=== PATIENT | male | born 1970 | race American Indian/Alaskan Native ===

== ENCOUNTER 2020-05-08 00:54 | Emergency (ER) | payer BC ==
--- NOTE | 2020-05-08 01:01 | Emergency Department Report ---
ED Chest Pain HPI - General Chief Complaint: Chest Pain Stated Complaint: CHEST PAIN ISAIAS PUI?: No Time Seen by Provider: 05/08/20 00:58 Source: patient Mode of arrival: Stretcher Limitations: No Limitations - History of Present Illness Initial Comments: Patient is a 50-year-old male that presents emergency room with complaints of chest pain or shortness of breath x3 days. Patient also complains of dyspnea on exertion. Patient states his symptoms started 3 days ago. Patient states his symptoms are worsening. Patient states he has an LVAD that was placed at [facility]. Patient denies anxiety. Patient denies diaphoresis. Patient states his chest pain is a 7 out of 10. Patient states his chest pain is worse with exertion and better with rest. Patient states that shortness of breath is better with rest and worse with exertion. Patient denies fever and chills. Patient denies back pain. Patient denies headache. Patient denies recent travel. Patient denies recent international travel. Patient denies exposure to the novel coronavirus. Patient denies sick contacts. Patient denies fever and chills. Patient denies cough. Patient denies diarrhea. Patient denies coming in contact with anybody with symptoms of the novel coronavirus. MD Complaint: chest pain -: Sudden Onset: during rest Pain Location: substernal, left chest Severity: severe Severity scale (0 -10): 7 Quality: sharp Consistency: constant Improves With: rest Worsens With: exertion re: dyspnea. denies: nausea, vomting, diaphoresis, sense of impending doom Other Symptoms: denies: cough, fever, syncope, rash, acid taste in mouth, leg swelling, palpitations, burping Treatments Prior to Arrival: aspirin Aspirin use within the Past 7 Days: (1) Yes - Related Data On Oral Contraceptives: No Allergies Allergy/AdvReac Type Severity Reaction Status Date / Time No Known Allergies Allergy Verified 05/08/20 05:26 Heart Score - HEART Score History: Moderately suspicious EKG: Non-specific Age: 45-65 Risk factors: > 3 risk factors or hx of atherosclerotic disease Troponin: 1-3x normal limit HEART Score: 6 ED Review of Systems ROS: Stated complaint: CHEST PAIN ISAIAS Other details as noted in HPI ED Past Medical Hx - Past Medical History Previous Medical History?: Yes Hx Hypertension: Yes Hx Heart Attack/AMI: Yes Hx Congestive Heart Failure: Yes Hx Renal Disease: Yes - Surgical History Past Surgical History?: Yes Additional Surgical History: LVAD - Family History Family history: no significant - Social History Smoking Status: Former Smoker Substance Use Type: None ED Physical Exam - General General appearance: alert, in no apparent distress - Head Head exam: Present: atraumatic, normocephalic - Eye Eye exam: Present: normal appearance - ENT ENT exam: Present: mucous membranes moist - Neck Neck exam: Present: normal inspection - Respiratory Respiratory exam: Present: decreased breath sounds. Absent: respiratory distress - Cardiovascular Cardiovascular Exam: Present: regular rate, normal rhythm. Absent: systolic murmur, diastolic murmur, rubs, gallop - GI/Abdominal GI/Abdominal exam: Present: soft, normal bowel sounds. Absent: distended, tenderness - Rectal Rectal exam: Present: deferred - Extremities Exam Extremities exam: Present: normal inspection - Back Exam Back exam: Present: normal inspection - Neurological Exam Neurological exam: Present: alert, oriented X3 - Psychiatric Psychiatric exam: Present: normal affect, normal mood - Skin Skin exam: Present: warm, dry, intact, normal color. Absent: rash ED Course Vital Signs 05/08/20 05/08/20 01:00 01:01 Temperature 97.5 F L Pulse Rate 87 Respiratory 18 18 Rate O2 Sat by Pulse 100 Oximetry - Reevaluation(s) Reevaluation #1: Patient complaining of severe chest pain. Patient will be given morphine 2 mg. I discussed all results and clinical findings with patient. I discussed plan of care with patient. Patient agrees with plan of care and transfer. Patient is stable for transfer via ground EMS. 05/08/20 03:55 Reevaluation #2: Patient is INR is low. Patient will be placed on a low intensity heparin drip. Patient will also be given a bolus. Patient agrees with plan of care. 05/08/20 05:22 - Consultations Consultation #1: I discussed case with Dr. Correa at [facility]. Dr. Correa has accepted the patient to be transferred and states that if the INR is less than [address] the patient on a heparin drip. 05/08/20 03:54 NOLVIA score - Nolvia Score Age > 65: (0) No Aspirin use within the Past 7 Days: (1) Yes 3 or more CAD Risk Factors: (1) Yes 2 or more Angina events in past 24 hrs: (1) Yes Known CAD with more than 50% Stenosis: (0) No Elevated Cardiac Markers: (1) Yes ST Deviation Greater than 0.5mm: (0) No NOLVIA Score: 4 ED Medical Decision Making - Lab Data Result diagrams: 05/08/20 00:58 05/08/20 00:58 - EKG Data -: EKG Interpreted by Me EKG shows normal: sinus rhythm Rate: normal - EKG Data Interpretation: other (Patient has an LVAD in deems the EKG to be difficult to interpret.. Of the areas that are clear show a normal ST and a sinus rhythm. Wide QRS noted.) - Radiology Data Radiology results: report reviewed, image reviewed CHEST 1 VIEW 2:01 AM INDICATION / CLINICAL INFORMATION: Chest Pain. COMPARISON: None available. FINDINGS: SUPPORT DEVICES: There is a multilead left subclavian ICD with the tips of the pacing leads overlying the right atrial appendage, right ventricular apex and coronary sinus. Another generator overlies the left lower hemithorax with the lead coursing towards the abdomen. HEART / MEDIASTINUM: Median sternotomy and valve prosthesis. Mild cardiomegaly. The aorta is normal in caliber. Pulmonary vasculature is normal. LUNGS / PLEURA: No significant pulmonary or pleural abnormality. No pneumothorax. ADDITIONAL FINDINGS: No significant additional findings. IMPRESSION: No acute findings. - Medical Decision Making Patient is a 50-year-old male presents emergency room with complaints of chest pain shortness of breath x3 days. Patient has a cardiac history and currently has an LVAD. Patient's LVAD was placed at [facility]. Patient had labs done which were consistent with renal insufficiency, elevated troponin. I discussed the case with the cardiac surgeon at [facility]. Dr. Correa recommended the patient be placed on a heparin drip if the INR was less than 2. Patient placed on a low intensity heparin drip. Patient's chest x-ray is negative. Patient's transferred to [facility]. Patient stable for transfer. - Differential Diagnosis NSTEMI, chest pain, ACS, S OB, CHF. Critical Care Time: Yes Critical care time in (mins) excluding proc time.: 35 Critical care attestation.: If time is entered above; I have spent that time in minutes in the direct care of this critically ill patient, excluding procedure time. Critical Care Time: 35 minutes ED Disposition Clinical Impression: Elevated troponin, ACS (acute coronary syndrome), SOB (shortness of breath), LVAD (left ventricular assist device) present Chest pain Qualifiers: Chest pain type: unspecified Qualified Code(s): R07.9 - Chest pain, unspecified CHF (congestive heart failure) Qualifiers: Heart failure type: unspecified Heart failure chronicity: unspecified Qualified Code(s): I50.9 - Heart failure, unspecified Disposition: DC/TX-70 ANOTHER TYPE HLTHCARE Is pt being admited?: No Does the pt Need Aspirin: No Condition: Critical Time of Disposition: 05:25
[2020-05-08 02:02] LABS: Hematocrit 36.9 % (35.5-45.6); Hemoglobin 11.8 gm/dl (11.8-15.2); Mean Corpuscular HGB Conc 32 % (32-34); Mean Corpuscular Volume 84 fl (84-94); Platelet Count 237 K/mm3 (140-440); Red Blood Count 4.39 M/mm3 (3.65-5.03); Red Cell Distribution Width 19.1 % (13.2-15.2)
[2020-05-08 02:08] LABS: Basophils % (Auto) 0.9 % (0.0-1.8); Eosinophils # (Auto) 0.4 K/mm3 (0.0-0.4); Eosinophils % (Auto) 7.5 % (0.0-4.3); Lymphocytes # (Auto) 0.7 K/mm3 (1.2-5.4); Lymphocytes % (Auto) 13.7 % (13.4-35.0); Monocytes # (Auto) 0.9 K/mm3 (0.0-0.8)
[2020-05-08 02:25] LABS: Calcium 9.6 mg/dL (8.4-10.2)
--- NOTE | 2020-05-08 02:27 | XRay Report ---
CHEST 1 VIEW 2:01 AM INDICATION / CLINICAL INFORMATION: Chest Pain. COMPARISON: None available. FINDINGS: SUPPORT DEVICES: There is a multilead left subclavian ICD with the tips of the pacing leads overlying the right atrial appendage, right ventricular apex and coronary sinus. Another generator overlies th e left lower hemithorax with the lead coursing towards the abdomen. HEART / MEDIASTINUM: Median sternotomy and valve prosthesis. Mild cardiomegaly. The aorta is normal i n caliber. Pulmonary vasculature is normal. LUNGS / PLEURA: No significant pulmonary or pleural abnormality. No pneumothorax. ADDITIONAL FINDINGS: No significant additional findings. IMPRESSION: No acute findings. Signer Name: De Valadez MD Signed: 05/08/2020 2:22 AM Workstation Name: [id number]
[2020-05-08 03:15] LABS: Chol/HDL Ratio 1.82 %
[2020-05-08] MEDS ORDERED: MORPHINE 2 MG/1 ML INJ IV ONE (04:17)
[2020-05-08 05:18] LABS: INR 1.47 (0.87-1.13)
[2020-05-08 05:19] LABS: Partial Thromboplastin Time 39.4 Sec. (24.2-36.6)
[2020-05-08] MEDS ORDERED: HEPARIN 10,000 UNITS/10 ML VIAL IV ONE (05:21)
[2020-05-08] MEDS ORDERED: HEPARIN/ 0.45% NACL DRIP 25,000 UNIT/500 ML BAG IV SCH (06:00)
== END 2020-05-08 07:09 | disposition other institution (70) ==
LOC: ED 00:54
DX: I24.9 Acute ischemic heart disease, unspecified (principal); I50.9 Heart failure, unspecified; I11.0 Hypertensive heart disease with heart failure; R77.8 Other specified abnormalities of plasma proteins; R06.02 Shortness of breath; I25.2 Old myocardial infarction; Z95.811 Presence of heart assist device; Z98.890 Other specified postprocedural states; Z87.891 Personal history of nicotine dependence
CPT/HCPCS: 36415; 71045; 80053; 80061; 83880; 84484; 85025; 85610; 85730; 93005; 96365; 96375; 99285; J1644; J2270